=== PATIENT | male | born 1965 | race African-American/Black ===

== ENCOUNTER 2019-12-22 13:55 | Outpatient (CLI) | payer BC ==
--- NOTE | 2019-12-22 14:46 | ULT ---
BILATERAL RENAL ULTRASOUND: Date: 12/22/2019 HISTORY: Chronic renal failure. FINDINGS: Real-time imaging of the right and left kidneys performed. The right kidney measures 13.2 cm and the left kidney measures 12.2 cm in size. There is a small 1.4 cm right renal cyst. No solid mass or obs truction. Bladder region appears unremarkable. IMPRESSION: Small right renal cyst. POS: [facility]
== END 2019-12-22 13:56 | disposition home or self-care (01) ==
LOC: BICULT 13:55
PROVIDERS: ATTEND Family Medicine
DX: N18.2 Chronic kidney disease, stage 2 (mild) (principal); N28.1 Cyst of kidney, acquired
CPT/HCPCS: 76770

== ENCOUNTER 2020-06-13 09:10 | Outpatient (CLI) | payer BC | END 2020-06-13 09:11 | disposition home or self-care (01) | LOC: BICMRI 09:10 | PROVIDERS: ATTEND Family Medicine | DX: M23.92 Unspecified internal derangement of left knee (principal); M67.462 Ganglion, left knee; M17.12 Unilateral primary osteoarthritis, left knee ==